=== PATIENT | female | born 1935 | race Two or more races ===

== ENCOUNTER 2017-03-21 10:05 | Inpatient (IN) | payer MEDICAID ==
[2017-03-21] VITALS (7 sets, daily range): BP systolic 83–113; BP diastolic 20–59
[~2017-03-21] VITALS: Ht 152.4 cm; Wt 69.4 kg
[2017-03-21] MEDS ORDERED: SODIUM CHLORIDE 0.9% 1,000 ML IVB ONE (10:35)
[2017-03-21] MEDS ORDERED: LOPERAMIDE HCL 2 MG CAP PO ONE (10:45)
[2017-03-21] MEDS ORDERED: PANTOPRAZOLE 40 MG/10 ML VIAL IV ONE (10:45)
[2017-03-21] MEDS ORDERED: SODIUM CHLORIDE 0.9% 1,000 ML IV ONE ×2 (10:45→13:45)
[2017-03-21] MEDS ORDERED: ONDANSETRON HCL 4 MG/2 ML VIAL IV ONE (10:45)
[2017-03-21] MEDS ORDERED: SIMV40TA96 PO (11:06)
[2017-03-21] MEDS ORDERED: FURO40TA PO (11:06)
[2017-03-21] MEDS ORDERED: LOSA50TA6 PO (11:06)
[2017-03-21] MEDS ORDERED: CARV25TA PO (11:06)
[2017-03-21] MEDS ORDERED: AMLO5TAB2 PO (11:06)
[2017-03-21] MEDS ORDERED: ALBUAER3 IN (11:07)
[2017-03-21] MEDS ORDERED: BECL0.07 INH (11:07)
[2017-03-21] MEDS ORDERED: METF-370 PO (11:07)
[2017-03-21] MEDS ORDERED: ASPI81TA27 PO (11:08)
[2017-03-21] MEDS ORDERED: POTA20TA53 PO (11:08)
[2017-03-21] MEDS ORDERED: OMEP20CA74 PO (11:08)
[2017-03-21] MEDS ORDERED: CALC-317 PO (11:09)
[2017-03-21] MEDS ORDERED: NAP500T PO (11:09)
[2017-03-21 11:17] LABS: Basophils # (auto) 0 uL; Basophils % (auto) 0.4 % (0.0-2.0); CONDITION Y; DEFINITIVE SEE PRINTOUT; Eosinophils # (auto) 0 uL; Eosinophils % (auto) 0.1 % (0.0-7.0); Hematocrit 16.6 % (36.0-46.0); Lymphocytes # (auto) 1.7 uL; Lymphocytes % (auto) 13.8 % (10.0-50.0); Mean Corpuscular Hemoglobin 23.7 pg (28.0-32.0); Mean Corpuscular Hgb Conc. 31.5 g/dL (32.0-36.0); Mean Corpuscular Volume 75.4 fL (80.0-100.0); Mean Platelet Volume 9.9 fL (7.4-10.4); Monocytes # (auto) 0.4 uL; Monocytes % (auto) 3.2 % (0.0-12.0); Neutrophils # (auto) 9.9 uL; Neutrophils % (auto) 82.5 % (37.0-80.0); Platelet Count (auto) 321 10^3/uL (140-450); Red Cell Distribution Width 18.6 % (11.6-16.0); SUSPECT SEE PRINTOUT
[2017-03-21 11:23] LABS: Hemoglobin 5.2 g/dL (12.2-16.2)
[2017-03-21 11:27] LABS: INR 1.14 (0.9-1.15); Partial Thromboplastin Time 20.3 sec (22.64-33.71); Prothrombin Time 12.4 sec (9.37-12.3)
[2017-03-21 11:46] LABS: Albumin 2.9 g/dL (3.4-5.0); Magnesium 2.3 mg/dL (1.6-2.6); Potassium 4.4 mmol/L (3.5-5.1)
[2017-03-21 11:48] LABS: BUN/Creatinine Ratio 44.4
[2017-03-21 11:53] LABS: Bilirubin, Total 0.3 mg/dL (0.2-1.0); Total Protein 5.8 g/dL (6.4-8.2)
[2017-03-21 12:00] LABS: Amylase 45 U/L (25-115)
[2017-03-21 12:04] LABS: B-Type Natriuretic Peptide 260.95 pg/mL (0-100)
[2017-03-21 12:14] LABS: Urine Bilirubin Negative (Negative); Urine Blood Negative /uL (Negative); Urine Color Yellow (Yellow); Urine Glucose Normal (Normal); Urine Hyaline Cast FEW /lpf (0 - 2); Urine Ketone Negative (Negative); Urine Mucus FEW (None Seen); Urine Nitrite Negative (Negative); Urine RBC <1 /hpf (0 - 4); Urine Squamous Epithelial Cell FEW /hpf (<5); Urine Urobilinogen Normal (Negative); Urine pH 5.5 (5.0-8.0)
[2017-03-21 12:18] LABS: REFLEX LACTIC ACID YES OR NO NO
[2017-03-21 12:43] LABS: Temperature: 23.3 C (20.0-25.0)
[2017-03-21] MEDS ORDERED: VANCOMYCIN 1GM/250ML D5W 250 ML IV ONE (12:45)
[2017-03-21] MEDS ORDERED: PIPERACILLIN-TAZOB 3.375GM 100 ML IV ONE (12:45)
[2017-03-21 13:36] LABS: Lactic Acid w/Reflex 4.6 mmol/L (0.4-2.0)
[2017-03-21] MEDS ORDERED: FAMOTIDINE (10MG/ML) 2ML VL IV ONE (13:45)
[2017-03-21] MEDS ORDERED: cefTRIAXone 1GM/50ML D5W 50 ML IV ONE (13:45)
[2017-03-21] MEDS ORDERED: VANCOMYCIN PER PHARMACY 0 MG IV SCH (13:45)
[2017-03-21] MEDS ORDERED: NITROGLYCERIN 0.4 MG SL TAB SL PRN (14:00)
[2017-03-21] MEDS ORDERED: MORPHINE SULF INJ 2 MG/ML SYRINGE 1ML IV PRN ×2 (14:00)
[2017-03-21] MEDS ORDERED: amLODIPine BESYLATE 5 MG TAB PO ONE (14:00)
[2017-03-21] MEDS ORDERED: DEXTROSE (50%) 50ML SYRG IV PRN (14:00)
[2017-03-21] MEDS ORDERED: ONDANSETRON HCL 4 MG/2 ML VIAL IV PRN (14:00)
[2017-03-21] MEDS ORDERED: FUROSEMIDE 40 MG TAB PO ONE (14:00)
[2017-03-21] MEDS ORDERED: LOSARTAN POTASSIUM 50 MG TAB PO ONE (14:00)
[2017-03-21] MEDS ORDERED: ACETAMINOPHEN 325 MG TAB PO PRN (14:00)
[2017-03-21] MEDS ORDERED: TEMAZEPAM 15 MG CAP PO PRN (14:00)
[2017-03-21] MEDS ORDERED: HYDROcodone-ACET 5/325MG TAB PO PRN (14:00)
[2017-03-21 14:08] LABS: REFLEX LACTIC ACID YES OR NO YES
[2017-03-21] MEDS: SODIUM CHLORIDE 0.9% 1,000 ML IV SCH ×2 (14:33→22:11)
[2017-03-21] MEDS ORDERED: IPRATROPIUM BROM 0.5 MG/2.5ML INH SOL NEB PRN (14:45)
[2017-03-21] MEDS ORDERED: ALBUTEROL SULF 2.5 MG/0.5ML(0.5%) NEB SOLN NEB PRN (14:45)
[2017-03-21 15:32] LABS: Anisocytosis Slight; Hypochromia Moderate; Microcytosis Moderate; Platelet Estimate Adequate
[2017-03-21 15:33] LABS: Ovalocytes FEW
[2017-03-21] MEDS: NOREPINEPHRINE BITARTRATE 250 ML IV SCH (15:36)
[2017-03-21 15:56] LABS: Lactic Acid w/Reflex 4.8 mmol/L (0.4-2.0)
[2017-03-21 15:58] LABS: REFLEX LACTIC ACID YES OR NO YES
[2017-03-21] MEDS: ACCU-CHEK COMFORT CURVE STRIP VI SCH ×2 (17:00→22:19)
[2017-03-21] MEDS: InsuLIN REG 1unit/0.01ml Soln (100units/ml) SC SCH ×2 (17:00→22:00)
[2017-03-21] MEDS: ALBUTEROL SULF 2.5 MG/0.5ML(0.5%) NEB SOLN NEB SCH (19:12)
[2017-03-21] MEDS: IPRATROPIUM BROM 0.5 MG/2.5ML INH SOL NEB SCH (19:12)
[2017-03-21 21:12] LABS: Hematocrit 22.6 % (36.0-46.0); Hemoglobin 7.4 g/dL (12.2-16.2)
[2017-03-21] MEDS ORDERED: PATIENTS OWN MEDICATION IN SCH ×2 (22:00)
[2017-03-21] MEDS: CARVEDILOL 12.5 MG TAB PO SCH (22:00)
[2017-03-21] MEDS: BUDESONIDE (INHALATION) 0.5 MG/2 ML NEB NEB SCH (22:22)
[2017-03-21] MEDS: ATORVASTATIN 20 MG TAB PO SCH (22:29)
[2017-03-21] MEDS: FAMOTIDINE (10MG/ML) 2ML VL IV SCH (22:29)
[2017-03-22] MEDS: IPRATROPIUM BROM 0.5 MG/2.5ML INH SOL NEB SCH ×4 (00:40→19:08)
[2017-03-22] MEDS: ALBUTEROL SULF 2.5 MG/0.5ML(0.5%) NEB SOLN NEB SCH ×4 (00:40→19:08)
[2017-03-22 03:33] LABS: Basophils # (auto) 0.1 uL; Basophils % (auto) 0.6 % (0.0-2.0); CONDITION Y; DEFINITIVE SEE PRINTOUT; Eosinophils # (auto) 0.1 uL; Hematocrit 22.1 % (36.0-46.0); Hemoglobin 7.3 g/dL (12.2-16.2); Lymphocytes # (auto) 1.9 uL; Lymphocytes % (auto) 19.2 % (10.0-50.0); Mean Corpuscular Hemoglobin 26.5 pg (28.0-32.0); Mean Corpuscular Hgb Conc. 33.1 g/dL (32.0-36.0); Mean Platelet Volume 9.4 fL (7.4-10.4); Monocytes # (auto) 0.8 uL; Monocytes % (auto) 7.7 % (0.0-12.0); Neutrophils # (auto) 7.3 uL; Neutrophils % (auto) 71.5 % (37.0-80.0); Platelet Count (auto) 229 10^3/uL (140-450); Red Cell Distribution Width 18.3 % (11.6-16.0); White Blood Cell 10.1 10^3/uL (4.4-10.8)
[2017-03-22 03:51] LABS: Albumin 2.6 g/dL (3.4-5.0); Calcium 7.2 mg/dL (8.5-10.1); Potassium 3.6 mmol/L (3.5-5.1)
[2017-03-22 03:52] LABS: BUN/Creatinine Ratio 30.4
[2017-03-22 04:00] LABS: Bilirubin, Total 0.3 mg/dL (0.2-1.0); Total Protein 5.2 g/dL (6.4-8.2)
[2017-03-22] MEDS: SODIUM CHLORIDE 0.9% 1,000 ML IV SCH ×3 (04:16→23:11)
[2017-03-22] MEDS: BUDESONIDE (INHALATION) 0.5 MG/2 ML NEB NEB SCH ×2 (05:37→19:08)
[2017-03-22] MEDS: InsuLIN REG 1unit/0.01ml Soln (100units/ml) SC SCH ×4 (07:00→22:00)
[2017-03-22] MEDS: ACCU-CHEK COMFORT CURVE STRIP VI SCH ×4 (07:09→22:15)
[2017-03-22] MEDS: CARVEDILOL 12.5 MG TAB PO SCH ×2 (09:37→22:00)
[2017-03-22] MEDS: LOSARTAN POTASSIUM 50 MG TAB PO SCH (09:38)
[2017-03-22] MEDS: amLODIPine BESYLATE 5 MG TAB PO SCH (09:38)
[2017-03-22] MEDS: cefTRIAXone 1GM/50ML D5W 50 ML IV SCH (09:55)
[2017-03-22] MEDS: FAMOTIDINE (10MG/ML) 2ML VL IV SCH (09:55)
[2017-03-22] MEDS: POTASSIUM CHL 20 Meq TABLET PO SCH (09:55)
[2017-03-22] MEDS: FUROSEMIDE 40 MG TAB PO SCH (09:55)
[2017-03-22] MEDS: MULTIPLE VITAMIN TAB PO SCH (09:56)
[2017-03-22] MEDS: CALCIUM W/VIT D (600MG/400IU) TAB PO SCH (09:56)
[2017-03-22] MEDS ORDERED: PANTOPRAZOLE 40 MG/10 ML VIAL IV SCH (10:00)
[2017-03-22] MEDS: Boost Glucose Control 8 Ounces PO SCH ×2 (12:52→18:00)
[2017-03-22] MEDS: VANCOMYCIN 1GM/250ML D5W 250 ML IV SCH (13:06)
[2017-03-22] MEDS: NOREPINEPHRINE BITARTRATE 250 ML IV SCH (13:45)
[2017-03-22 14:20] VITALS: BP 105/63
[2017-03-22] MEDS: PANTOPRAZOLE 40 MG/10 ML VIAL IV SCH ×2 (15:45→22:28)
[2017-03-22 16:30] VITALS: BP 93/47
[2017-03-22 17:01] VITALS: BP 88/49
[2017-03-22 17:24] VITALS: BP 95/60
[2017-03-22 19:20] VITALS: BP 95/49
[2017-03-22 21:18] LABS: Hematocrit 27.6 % (36.0-46.0)
[2017-03-22] MEDS: ATORVASTATIN 20 MG TAB PO SCH (22:28)
[2017-03-23] MEDS: IPRATROPIUM BROM 0.5 MG/2.5ML INH SOL NEB SCH ×4 (00:15→18:01)
[2017-03-23] MEDS: ALBUTEROL SULF 2.5 MG/0.5ML(0.5%) NEB SOLN NEB SCH ×4 (00:15→18:02)
[2017-03-23 03:55] LABS: Basophils # (auto) 0.1 uL; Basophils % (auto) 0.8 % (0.0-2.0); CONDITION Y; DEFINITIVE SEE PRINTOUT; Eosinophils # (auto) 0.1 uL; Eosinophils % (auto) 1.9 % (0.0-7.0); Hematocrit 23.5 % (36.0-46.0); Hemoglobin 7.9 g/dL (12.2-16.2); Lymphocytes # (auto) 1.4 uL; Lymphocytes % (auto) 21.1 % (10.0-50.0); Mean Corpuscular Hemoglobin 27.2 pg (28.0-32.0); Mean Corpuscular Hgb Conc. 33.4 g/dL (32.0-36.0); Mean Corpuscular Volume 81.4 fL (80.0-100.0); Mean Platelet Volume 8.6 fL (7.4-10.4); Monocytes # (auto) 0.6 uL; Monocytes % (auto) 9.1 % (0.0-12.0); Neutrophils # (auto) 4.5 uL; Neutrophils % (auto) 67.1 % (37.0-80.0); Platelet Count (auto) 175 10^3/uL (140-450); Red Cell Distribution Width 17.4 % (11.6-16.0); White Blood Cell 6.7 10^3/uL (4.4-10.8)
[2017-03-23 04:18] LABS: Albumin 2.4 g/dL (3.4-5.0); BUN/Creatinine Ratio 24.3; Calcium 7.4 mg/dL (8.5-10.1); Potassium 3.5 mmol/L (3.5-5.1)
[2017-03-23 04:21] LABS: Bilirubin, Total 0.4 mg/dL (0.2-1.0); Total Protein 4.9 g/dL (6.4-8.2)
[2017-03-23] MEDS: BUDESONIDE (INHALATION) 0.5 MG/2 ML NEB NEB SCH ×2 (05:54→18:02)
[2017-03-23] MEDS: InsuLIN REG 1unit/0.01ml Soln (100units/ml) SC SCH ×4 (06:23→22:30)
[2017-03-23] MEDS: ACCU-CHEK COMFORT CURVE STRIP VI SCH ×4 (06:24→22:30)
[2017-03-23] MEDS: SODIUM CHLORIDE 0.9% 1,000 ML IV SCH ×2 (07:52→16:03)
[2017-03-23] MEDS: Boost Glucose Control 8 Ounces PO SCH ×3 (08:20→18:00)
[2017-03-23] MEDS ORDERED: SODIUM CHLORIDE LOCK 10 ML ONE (08:22)
[2017-03-23] MEDS ORDERED: LIDOCAINE VISCOUS 2% 15ML UD ONE (08:22)
[2017-03-23] MEDS ORDERED: fentaNYL CITRATE 100 MCG/2 ML VL ONE (08:22)
[2017-03-23] MEDS ORDERED: MIDAZOLAM HCL 5 MG/ML-1ML VIAL ONE (08:23)
[2017-03-23] MEDS ORDERED: diphenhdrAMINE HCL 50 MG/1 ML VL ONE (08:23)
[2017-03-23] MEDS: cefTRIAXone 1GM/50ML D5W 50 ML IV SCH (09:16)
[2017-03-23] MEDS: CARVEDILOL 12.5 MG TAB PO SCH (09:40)
[2017-03-23] MEDS: FUROSEMIDE 40 MG TAB PO SCH (09:40)
[2017-03-23] MEDS: LOSARTAN POTASSIUM 50 MG TAB PO SCH (09:40)
[2017-03-23] MEDS: amLODIPine BESYLATE 5 MG TAB PO SCH (09:41)
[2017-03-23] MEDS: CALCIUM W/VIT D (600MG/400IU) TAB PO SCH (10:00)
[2017-03-23] MEDS: POTASSIUM CHL 20 Meq TABLET PO SCH (10:00)
[2017-03-23] MEDS: MULTIPLE VITAMIN TAB PO SCH (10:00)
[2017-03-23] MEDS: PANTOPRAZOLE 40 MG/10 ML VIAL IV SCH ×2 (10:16→22:46)
[2017-03-23] MEDS ORDERED: EPINEPHrine HCL 1 MG/10 ML SYRG ONE (10:47)
[2017-03-23] MEDS: NOREPINEPHRINE BITARTRATE 250 ML IV SCH (13:45)
[2017-03-23] MEDS: VANCOMYCIN 1GM/250ML D5W 250 ML IV SCH (14:49)
[2017-03-23 18:00] LABS: Hematocrit 27.3 % (36.0-46.0)
[2017-03-23 21:20] VITALS: BP 117/52
[2017-03-23] MEDS: ATORVASTATIN 20 MG TAB PO SCH (22:45)
[2017-03-24] VITALS: BP 106/59
[2017-03-24] MEDS: ALBUTEROL SULF 2.5 MG/0.5ML(0.5%) NEB SOLN NEB SCH ×4 (00:27→18:19)
[2017-03-24] MEDS: IPRATROPIUM BROM 0.5 MG/2.5ML INH SOL NEB SCH ×4 (00:27→18:19)
[2017-03-24 04:00] VITALS: BP 110/45
[2017-03-24 05:25] LABS: BUN/Creatinine Ratio 15.4; Calcium 7.4 mg/dL (8.5-10.1); Magnesium 2.3 mg/dL (1.6-2.6); Potassium 3.4 mmol/L (3.5-5.1)
[2017-03-24 05:47] LABS: Basophils # (auto) 0 uL; Basophils % (auto) 0.5 % (0.0-2.0); CONDITION Y; DEFINITIVE SEE PRINTOUT; Eosinophils # (auto) 0.2 uL; Eosinophils % (auto) 2.7 % (0.0-7.0); Hematocrit 23.9 % (36.0-46.0); Lymphocytes # (auto) 0.9 uL; Lymphocytes % (auto) 15.2 % (10.0-50.0); Mean Corpuscular Hemoglobin 27.7 pg (28.0-32.0); Mean Corpuscular Hgb Conc. 33.3 g/dL (32.0-36.0); Mean Corpuscular Volume 83.2 fL (80.0-100.0); Mean Platelet Volume 9.6 fL (7.4-10.4); Monocytes # (auto) 0.5 uL; Monocytes % (auto) 8.3 % (0.0-12.0); Neutrophils # (auto) 4.6 uL; Neutrophils % (auto) 73.3 % (37.0-80.0); Platelet Count (auto) 189 10^3/uL (140-450); Red Cell Distribution Width 17.8 % (11.6-16.0); White Blood Cell 6.2 10^3/uL (4.4-10.8)
[2017-03-24] MEDS: BUDESONIDE (INHALATION) 0.5 MG/2 ML NEB NEB SCH ×2 (06:06→18:20)
[2017-03-24] MEDS: InsuLIN REG 1unit/0.01ml Soln (100units/ml) SC SCH ×4 (06:50→22:00)
[2017-03-24] MEDS: ACCU-CHEK COMFORT CURVE STRIP VI SCH ×4 (06:51→22:09)
[2017-03-24] MEDS: Boost Glucose Control 8 Ounces PO SCH ×3 (08:00→18:00)
[2017-03-24] MEDS: cefTRIAXone 1GM/50ML D5W 50 ML IV SCH (09:40)
[2017-03-24] MEDS: MULTIPLE VITAMIN TAB PO SCH (10:10)
[2017-03-24] MEDS: PANTOPRAZOLE 40 MG/10 ML VIAL IV SCH ×2 (10:10→22:08)
[2017-03-24] MEDS: CALCIUM W/VIT D (600MG/400IU) TAB PO SCH (10:10)
[2017-03-24 12:00] VITALS: BP 131/51
[2017-03-24] MEDS ORDERED: POTASSIUM CHL 20 Meq TABLET PO ONE (13:00)
[2017-03-24] MEDS ORDERED: DIGOXIN (250MCG/ML) 2 ML AMPULE IV ONE (13:45)
[2017-03-24] MEDS ORDERED: METOPROLOL SUCCINATE XL 50 MG TAB PO ONE (13:45)
[2017-03-24 13:48] VITALS: BP 131/51
[2017-03-24] MEDS: SODIUM CHLORIDE 0.9% 1,000 ML IV SCH ×2 (15:00→23:51)
[2017-03-24 16:00] VITALS: BP 141/70
[2017-03-24 20:00] VITALS: BP 115/65
[2017-03-24] MEDS: ATORVASTATIN 20 MG TAB PO SCH (22:08)
[2017-03-25] VITALS (15 sets, daily range): BP systolic 120–149; BP diastolic 53–92
[2017-03-25] MEDS: IPRATROPIUM BROM 0.5 MG/2.5ML INH SOL NEB SCH ×6 (00:05→23:59)
[2017-03-25] MEDS: ALBUTEROL SULF 2.5 MG/0.5ML(0.5%) NEB SOLN NEB SCH ×5 (00:05→23:59)
[2017-03-25 05:50] LABS: Hematocrit 23.8 % (36.0-46.0); Hemoglobin 7.8 g/dL (12.2-16.2)
[2017-03-25] MEDS: ACCU-CHEK COMFORT CURVE STRIP VI SCH ×3 (06:09→22:22)
[2017-03-25] MEDS: InsuLIN REG 1unit/0.01ml Soln (100units/ml) SC SCH ×3 (06:10→22:00)
[2017-03-25] MEDS: BUDESONIDE (INHALATION) 0.5 MG/2 ML NEB NEB SCH ×2 (06:50→18:17)
[2017-03-25] MEDS: Boost Glucose Control 8 Ounces PO SCH ×2 (08:00→12:00)
[2017-03-25] MEDS: CALCIUM W/VIT D (600MG/400IU) TAB PO SCH (10:25)
[2017-03-25] MEDS: MULTIPLE VITAMIN TAB PO SCH (10:25)
[2017-03-25] MEDS: PANTOPRAZOLE 40 MG/10 ML VIAL IV SCH ×2 (10:26→22:42)
[2017-03-25] MEDS: cefTRIAXone 1GM/50ML D5W 50 ML IV SCH (10:45)
[2017-03-25] MEDS: SODIUM CHLORIDE 0.9% 1,000 ML IV SCH ×2 (12:23→19:30)
[2017-03-25] MEDS: Boost Breeze 8 Ounces PO SCH (18:00)
[2017-03-25] MEDS: ATORVASTATIN 20 MG TAB PO SCH (22:40)
[2017-03-26] VITALS: BP 143/82
[2017-03-26 04:00] VITALS: BP 123/71
[2017-03-26] MEDS: ALBUTEROL SULF 2.5 MG/0.5ML(0.5%) NEB SOLN NEB SCH ×3 (06:09→18:17)
[2017-03-26] MEDS: BUDESONIDE (INHALATION) 0.5 MG/2 ML NEB NEB SCH ×2 (06:09→18:25)
[2017-03-26] MEDS: IPRATROPIUM BROM 0.5 MG/2.5ML INH SOL NEB SCH ×3 (06:09→18:17)
[2017-03-26] MEDS: SODIUM CHLORIDE 0.9% 1,000 ML IV SCH ×2 (06:11→16:10)
[2017-03-26 06:32] LABS: Basophils # (auto) 0 uL; Basophils % (auto) 0.7 % (0.0-2.0); CONDITION Y; Eosinophils # (auto) 0.1 uL; Eosinophils % (auto) 2.2 % (0.0-7.0); Hematocrit 31.2 % (36.0-46.0); Hemoglobin 10.4 g/dL (12.2-16.2); Lymphocytes % (auto) 15.4 % (10.0-50.0); Mean Corpuscular Hgb Conc. 33.3 g/dL (32.0-36.0); Mean Corpuscular Volume 84.4 fL (80.0-100.0); Mean Platelet Volume 9.4 fL (7.4-10.4); Monocytes # (auto) 0.6 uL; Monocytes % (auto) 9.4 % (0.0-12.0); Neutrophils # (auto) 4.6 uL; Neutrophils % (auto) 72.3 % (37.0-80.0); Platelet Count (auto) 217 10^3/uL (140-450); Red Cell Distribution Width 17.5 % (11.6-16.0); White Blood Cell 6.4 10^3/uL (4.4-10.8)
[2017-03-26 06:38] LABS: Albumin 2.4 g/dL (3.4-5.0); BUN/Creatinine Ratio 7.8; Calcium 8.2 mg/dL (8.5-10.1); Potassium 3.8 mmol/L (3.5-5.1)
[2017-03-26 06:53] LABS: Bilirubin, Total 0.5 mg/dL (0.2-1.0); Total Protein 5.5 g/dL (6.4-8.2)
[2017-03-26] MEDS: InsuLIN REG 1unit/0.01ml Soln (100units/ml) SC SCH ×4 (07:00→21:27)
[2017-03-26] MEDS: ACCU-CHEK COMFORT CURVE STRIP VI SCH ×4 (07:15→21:28)
[2017-03-26 08:00] VITALS: BP 143/68
[2017-03-26] MEDS: Boost Breeze 8 Ounces PO SCH ×3 (08:00→17:59)
[2017-03-26] MEDS: cefTRIAXone 1GM/50ML D5W 50 ML IV SCH (09:03)
[2017-03-26] MEDS: PANTOPRAZOLE 40 MG/10 ML VIAL IV SCH ×2 (10:10→21:23)
[2017-03-26] MEDS: CALCIUM W/VIT D (600MG/400IU) TAB PO SCH (10:10)
[2017-03-26] MEDS: MULTIPLE VITAMIN TAB PO SCH (10:10)
[2017-03-26 12:00] VITALS: BP 125/77
[2017-03-26 16:00] VITALS: BP 140/72
[2017-03-26 19:45] VITALS: BP 135/69
[2017-03-26] MEDS: ATORVASTATIN 20 MG TAB PO SCH (21:24)
[2017-03-27] MEDS: ALBUTEROL SULF 2.5 MG/0.5ML(0.5%) NEB SOLN NEB SCH ×4 (00:18→19:40)
[2017-03-27] MEDS: IPRATROPIUM BROM 0.5 MG/2.5ML INH SOL NEB SCH ×4 (00:19→19:40)
[2017-03-27] MEDS: SODIUM CHLORIDE 0.9% 1,000 ML IV SCH (01:51)
[2017-03-27 04:47] LABS: Basophils # (auto) 0 uL; Basophils % (auto) 0.5 % (0.0-2.0); CONDITION Y; Eosinophils # (auto) 0.2 uL; Eosinophils % (auto) 4.1 % (0.0-7.0); Hematocrit 32.3 % (36.0-46.0); Hemoglobin 10.4 g/dL (12.2-16.2); Lymphocytes # (auto) 1.1 uL; Mean Corpuscular Hemoglobin 27.6 pg (28.0-32.0); Mean Corpuscular Hgb Conc. 32.2 g/dL (32.0-36.0); Mean Corpuscular Volume 85.7 fL (80.0-100.0); Mean Platelet Volume 9.1 fL (7.4-10.4); Monocytes # (auto) 0.7 uL; Monocytes % (auto) 11.4 % (0.0-12.0); Neutrophils # (auto) 3.7 uL; Platelet Count (auto) 213 10^3/uL (140-450); Red Cell Distribution Width 17.5 % (11.6-16.0); White Blood Cell 5.8 10^3/uL (4.4-10.8)
[2017-03-27 05:08] LABS: Potassium 3.7 mmol/L (3.5-5.1)
[2017-03-27 05:13] LABS: Albumin 2.3 g/dL (3.4-5.0); BUN/Creatinine Ratio 9.6; Calcium 7.9 mg/dL (8.5-10.1)
[2017-03-27 05:29] LABS: Bilirubin, Total 0.4 mg/dL (0.2-1.0); Total Protein 5.1 g/dL (6.4-8.2)
[2017-03-27] MEDS: BUDESONIDE (INHALATION) 0.5 MG/2 ML NEB NEB SCH ×2 (06:39→19:40)
[2017-03-27] MEDS: InsuLIN REG 1unit/0.01ml Soln (100units/ml) SC SCH ×2 (07:00→11:45)
[2017-03-27] MEDS: ACCU-CHEK COMFORT CURVE STRIP VI SCH ×2 (07:05→11:31)
[2017-03-27] MEDS: Boost Breeze 8 Ounces PO SCH ×3 (07:28→18:00)
[2017-03-27 08:00] VITALS: BP 127/67
[2017-03-27] MEDS: cefTRIAXone 1GM/50ML D5W 50 ML IV SCH (09:15)
[2017-03-27] MEDS: CALCIUM W/VIT D (600MG/400IU) TAB PO SCH (09:47)
[2017-03-27] MEDS: PANTOPRAZOLE 40 MG/10 ML VIAL IV SCH ×2 (09:47→21:42)
[2017-03-27] MEDS: MULTIPLE VITAMIN TAB PO SCH (09:47)
[2017-03-27] MEDS ORDERED: IODIXANOL 320MG/ML 100ML BTL IV ONE (10:04)
[2017-03-27] MEDS ORDERED: LIDOCAINE 2%HCL (LOCAL ANESTH.) INJ 20ML MDV ONE (10:05)
[2017-03-27] MEDS ORDERED: HEPARIN IN NS 1000Units/500mL 0 ML ONE (10:05)
[2017-03-27 12:00] VITALS: BP 146/51
[2017-03-27 14:09] VITALS: BP 146/51
[2017-03-27 15:57] VITALS: BP 130/65
[2017-03-27 20:00] VITALS: BP 152/76
[2017-03-27] MEDS: ATORVASTATIN 20 MG TAB PO SCH (21:42)
[2017-03-28] MEDS: ALBUTEROL SULF 2.5 MG/0.5ML(0.5%) NEB SOLN NEB SCH ×4 (01:32→19:36)
[2017-03-28] MEDS: IPRATROPIUM BROM 0.5 MG/2.5ML INH SOL NEB SCH ×4 (01:32→19:37)
[2017-03-28 06:09] LABS: Hematocrit 33.5 % (36.0-46.0); Hemoglobin 10.9 g/dL (12.2-16.2)
[2017-03-28] MEDS: BUDESONIDE (INHALATION) 0.5 MG/2 ML NEB NEB SCH ×2 (07:14→19:37)
[2017-03-28] MEDS: Boost Breeze 8 Ounces PO SCH ×3 (08:00→18:41)
[2017-03-28 08:25] VITALS: BP 153/82
[2017-03-28] MEDS: PANTOPRAZOLE 40 MG/10 ML VIAL IV SCH (10:30)
[2017-03-28] MEDS ORDERED: IODIXANOL 320MG/ML 100ML BTL IV ONE (10:57)
[2017-03-28] MEDS ORDERED: LIDOCAINE 2%HCL (LOCAL ANESTH.) INJ 20ML MDV ONE (10:58)
[2017-03-28] MEDS ORDERED: MIDAZOLAM HCL 1MG/1ML-2 ML VIAL ONE (11:25)
[2017-03-28] MEDS ORDERED: fentaNYL CITRATE 100 MCG/2 ML VL ONE (11:26)
[2017-03-28 12:07] LABS: Base Excess 0.9 mmol/L (-2.0-2.0); Blood 02Sat 75.5 % (96-100); Blood COHb 0.2 % (0.5-1.5); Blood MetHb 0.3 % (0.0-1.5); HCO3 26.1 mmol/L (22-26.0); HHb 24.4 % (0.0-5.0); MODE NASAL CANNULA; O2Hb 75.1 % (94.0-97.0); PCO2 43.8 mmHg (35.0-45.0); PCO2(T) 43.8 mmHg (35.0-45.0); PO2 43.1 mmHg (80.0-100.0); PO2(T) 43.1 mmHg (80.0-100.0); Room 0261D; Sample Type Arterial; pH 7.393 (7.350-7.450)
[2017-03-28 13:25] VITALS: BP 130/74
[2017-03-28] MEDS ORDERED: TEMAZEPAM 15 MG CAP PO PRN (13:30)
[2017-03-28] MEDS ORDERED: HYDROcodone-ACET 5/325MG TAB PO PRN (13:30)
[2017-03-28] MEDS ORDERED: amLODIPine BESYLATE 5 MG TAB PO ONE (13:45)
[2017-03-28] MEDS: SODIUM CHLORIDE 0.9% 1,000 ML IV SCH (15:09)
[2017-03-28 15:45] VITALS: BP 136/59
[2017-03-28] MEDS: CALCIUM W/VIT D (600MG/400IU) TAB PO SCH (18:41)
[2017-03-28] MEDS: MULTIPLE VITAMIN TAB PO SCH (18:41)
[2017-03-28 20:00] VITALS: BP 122/66
[2017-03-28] MEDS: NITROFURANTOIN (MONO) 100 mg CAP PO SCH (21:40)
[2017-03-28] MEDS: PANTOPRAZOLE 40 MG TAB PO SCH (21:46)
[2017-03-28] MEDS: ATORVASTATIN 20 MG TAB PO SCH (21:46)
[2017-03-29] MEDS: IPRATROPIUM BROM 0.5 MG/2.5ML INH SOL NEB SCH ×4 (00:38→18:14)
[2017-03-29] MEDS: ALBUTEROL SULF 2.5 MG/0.5ML(0.5%) NEB SOLN NEB SCH ×4 (00:38→18:14)
[2017-03-29] MEDS: SODIUM CHLORIDE 0.9% 1,000 ML IV SCH (06:10)
[2017-03-29 06:34] LABS: Basophils # (auto) 0 uL; Basophils % (auto) 0.5 % (0.0-2.0); CONDITION Y; Eosinophils # (auto) 0.3 uL; Eosinophils % (auto) 4.4 % (0.0-7.0); Hematocrit 31.1 % (36.0-46.0); Hemoglobin 10.2 g/dL (12.2-16.2); Lymphocytes # (auto) 1.1 uL; Lymphocytes % (auto) 16.8 % (10.0-50.0); Mean Corpuscular Hemoglobin 27.6 pg (28.0-32.0); Mean Corpuscular Hgb Conc. 32.6 g/dL (32.0-36.0); Mean Corpuscular Volume 84.8 fL (80.0-100.0); Mean Platelet Volume 9.2 fL (7.4-10.4); Monocytes # (auto) 0.6 uL; Monocytes % (auto) 9.3 % (0.0-12.0); Neutrophils # (auto) 4.6 uL; Platelet Count (auto) 233 10^3/uL (140-450); Red Cell Distribution Width 17.9 % (11.6-16.0); White Blood Cell 6.6 10^3/uL (4.4-10.8)
[2017-03-29] MEDS: BUDESONIDE (INHALATION) 0.5 MG/2 ML NEB NEB SCH ×2 (06:35→18:15)
[2017-03-29 06:52] LABS: Calcium 7.9 mg/dL (8.5-10.1); Potassium 3.6 mmol/L (3.5-5.1)
[2017-03-29 06:55] LABS: BUN/Creatinine Ratio 9.7; Magnesium 2.2 mg/dL (1.6-2.6)
[2017-03-29 07:30] VITALS: BP 140/74
[2017-03-29] MEDS: Boost Breeze 8 Ounces PO SCH ×3 (07:36→18:43)
[2017-03-29] MEDS: CALCIUM W/VIT D (600MG/400IU) TAB PO SCH (10:31)
[2017-03-29] MEDS: MULTIPLE VITAMIN TAB PO SCH (10:32)
[2017-03-29] MEDS: PANTOPRAZOLE 40 MG TAB PO SCH ×2 (10:32→22:16)
[2017-03-29] MEDS: amLODIPine BESYLATE 5 MG TAB PO SCH (10:33)
[2017-03-29 12:00] VITALS: BP 133/71
[2017-03-29] MEDS: NITROFURANTOIN (MONO) 100 mg CAP PO SCH ×2 (13:15→22:16)
[2017-03-29 16:00] VITALS: BP 112/58
[2017-03-29 19:52] VITALS: BP 125/61
[2017-03-29] MEDS: ATORVASTATIN 20 MG TAB PO SCH (22:16)
[2017-03-30 00:10] VITALS: BP 124/65
[2017-03-30] MEDS: ALBUTEROL SULF 2.5 MG/0.5ML(0.5%) NEB SOLN NEB SCH ×3 (00:22→11:23)
[2017-03-30] MEDS: IPRATROPIUM BROM 0.5 MG/2.5ML INH SOL NEB SCH ×3 (00:22→11:23)
[2017-03-30] MEDS: BUDESONIDE (INHALATION) 0.5 MG/2 ML NEB NEB SCH (06:02)
[2017-03-30 06:57] VITALS: BP 124/65
[2017-03-30 07:30] VITALS: BP 137/59
[2017-03-30] MEDS ORDERED: PANT40T PO (10:44)
[2017-03-30] MEDS ORDERED: AML5T PO (10:44)
[2017-03-30] MEDS: Boost Breeze 8 Ounces PO SCH ×2 (10:51→11:50)
[2017-03-30] MEDS: MULTIPLE VITAMIN TAB PO SCH (10:51)
[2017-03-30] MEDS: CALCIUM W/VIT D (600MG/400IU) TAB PO SCH (10:52)
[2017-03-30] MEDS: amLODIPine BESYLATE 5 MG TAB PO SCH (10:52)
[2017-03-30] MEDS: PANTOPRAZOLE 40 MG TAB PO SCH (10:52)
[2017-03-30] MEDS: NITROFURANTOIN (MONO) 100 mg CAP PO SCH (10:53)
[2017-03-30 12:00] VITALS: BP 115/64
[2017-03-30 13:00] VITALS: BP 115/64
== END 2017-03-30 16:15 | disposition home or self-care (01) | DRG 720 ==
LOC: ER 10:08 → TELE 10:09 → DOU IN ICU 03-23 20:49
PROVIDERS: ADMIT Internal Medicine; ATTEND Internal Medicine
PROC: 30233N1 Transfusion of Nonautologous Red Blood Cells into Peripheral Vein, Percutaneous Approach (ICD-10-PCS; 2017-03-21)
PROC: 0DB68ZX Excision of Stomach, Via Natural or Artificial Opening Endoscopic, Diagnostic (ICD-10-PCS; principal; 2017-03-23 12:28)
PROC: 4A023N8 Measurement of Cardiac Sampling and Pressure, Bilateral, Percutaneous Approach (ICD-10-PCS; 2017-03-28)
PROC: B2111ZZ Fluoroscopy of Multiple Coronary Arteries using Low Osmolar Contrast (ICD-10-PCS; 2017-03-28)
PROC: B41F1ZZ Fluoroscopy of Right Lower Extremity Arteries using Low Osmolar Contrast (ICD-10-PCS; 2017-03-28)
DX: A41.9 Sepsis, unspecified organism (principal); E44.0 Moderate protein-calorie malnutrition; I13.0 Hypertensive heart and chronic kidney disease with heart failure and stage 1 through stage 4 chronic kidney disease, or unspecified chronic kidney disease; I50.32 Chronic diastolic (congestive) heart failure; E11.21 Type 2 diabetes mellitus with diabetic nephropathy; E11.22 Type 2 diabetes mellitus with diabetic chronic kidney disease; E88.09 Other disorders of plasma-protein metabolism, not elsewhere classified; J44.9 Chronic obstructive pulmonary disease, unspecified; E83.51 Hypocalcemia; N18.3 Chronic kidney disease, stage 3 (moderate); D50.9 Iron deficiency anemia, unspecified; J45.909 Unspecified asthma, uncomplicated; K80.20 Calculus of gallbladder without cholecystitis without obstruction; E78.5 Hyperlipidemia, unspecified; N39.0 Urinary tract infection, site not specified; R65.20 Severe sepsis without septic shock; B96.20 Unspecified Escherichia coli [E. coli] as the cause of diseases classified elsewhere; I25.10 Atherosclerotic heart disease of native coronary artery without angina pectoris; K31.7 Polyp of stomach and duodenum; K57.30 Diverticulosis of large intestine without perforation or abscess without bleeding; M48.06 Spinal stenosis, lumbar region; N28.1 Cyst of kidney, acquired; E86.0 Dehydration; R19.7 Diarrhea, unspecified; M51.36 Other intervertebral disc degeneration, lumbar region; I35.2 Nonrheumatic aortic (valve) stenosis with insufficiency; I05.0 Rheumatic mitral stenosis; R11.2 Nausea with vomiting, unspecified; R10.32 Left lower quadrant pain; Z79.82 Long term (current) use of aspirin; Z68.29 Body mass index [BMI] 29.0-29.9, adult; Z83.3 Family history of diabetes mellitus
CPT/HCPCS: 36415; 36430; 43239; 71020; 74176; 75710; 80048; 80053; 80061; 81001; 82150; 82270; 82962; 83036; 83605; 83690; 83735; 83880; 84132; 84484; 85014; 85018; 85025; 85379; 85610; 85730; 86850; 86900; 86901; 86920; 87040; 87045; 87081; 87086; 87088; 87186; 87493; 87899; 93005; 93306; 93460; 94640; 96365; 96367; 96375; 97116; 97163; 97530; 99152; 99291; C1751; C9113; J0696; J1815; J2250; J2405; J2543; J3490; Q9967